=== PATIENT | male | born 1955 | race Caucasian/White ===

== ENCOUNTER → 2017-04-09 | Outpatient (CLI) | payer MEDICAID ==
[~2017-04-09] MED LIST: HYDR25TA6 PO; LISI40TA PO; METH500T7 PO; [UNRECOGNIZED DRUG - OTHER]
[2017-04-09 14:23] LABS: ASPARTATE AMINO TRANSFERASE 18 U/L (15-37); BLOOD UREA NITROGEN 18 mg/dL (7-18)
== END | disposition home or self-care (01) ==
LOC: STAR 12:46
PROVIDERS: ATTEND Otolaryngology
DX: Z01.818 Encounter for other preprocedural examination (principal); R94.31 Abnormal electrocardiogram [ECG] [EKG]; J32.2 Chronic ethmoidal sinusitis; J32.8 Other chronic sinusitis
CPT/HCPCS: 36415; 71020; 80053; 93005

== ENCOUNTER 2017-07-08 07:27 | Day surgery (SDC) | payer MEDICAID ==
[~2017-07-08] VITALS: Ht 177.8 cm; Wt 103.5 kg
[~2017-07-08 07:27] MED LIST changes: +ALBU18HF INH; +BACITRACIN OINT 500U/GM, 15 GM ONE; +EPINEPHRINE TOPICAL SOLN 1 MG/ML, 30ML ONE; +FLUORESCEIN OPHTHALMIC 1 MG STRIP ONE; +FLUT100B INH; +IPRA12.9 INH; +LIDOCAINE/PF 1%-EPI 1:200K, 30 ML ONE; +OXYMETAZOLINE NASAL SPRAY 0.05%, 15ML ONE
[2017-07-08 08:09] VITALS: BP 146/74
[2017-07-08] MEDS ORDERED: LACTATED RINGERS 1,000 ML IV SCH (08:09)
[2017-07-08] MEDS ORDERED: MIDAZOLAM 1 MG/ML, 2ML ONE (08:25)
[2017-07-08] MEDS ORDERED: FENTANYL PF 100 MCG/2ML ONE ×5 (08:25→11:21)
[2017-07-08] MEDS ORDERED: MEPERIDINE/PF 25MG/0.5ML IVPush PRN (08:30)
[2017-07-08] MEDS ORDERED: ONDANSETRON 2MG/ML, 2ML IVPush PRN (08:30)
[2017-07-08] MEDS ORDERED: HYDROmorphone 1 MG/ML, 1ML IV PRN (08:30)
[2017-07-08] MEDS ORDERED: FENTANYL PF 100 MCG/2ML IV PRN (08:30)
[2017-07-08] MEDS ORDERED: ALBUTEROL SULFATE 2.5 MG/3 ML NPPB PRN (08:30)
[2017-07-08] MEDS ORDERED: hydrALAzine 20 MG/ML, 1ML IV PRN (08:30)
[2017-07-08] MEDS ORDERED: OXYcodone 5 MG/5 ML ORAL.SOL UDC PO PRN (08:30)
[2017-07-08] MEDS ORDERED: LABETALOL 5MG/ML, 20ML IV PRN (08:30)
[2017-07-08] MEDS ORDERED: ALBUTEROL/IPRATROPIUM 2.5MG/0.5MG, 3 ML NPPB PRN (08:30)
[2017-07-08] MEDS ORDERED: PROMETHAZINE 25 MG/ML, 1ML IV PRN (08:30)
[2017-07-08] MEDS ORDERED: MIDAZOLAM 1 MG/ML, 2ML IV PRN (08:30)
[2017-07-08] MEDS ORDERED: ACETAMINOPHEN 325 MG TABLET PO PRN (08:30)
[2017-07-08] MEDS ORDERED: CEFAZOLIN 1,000 MG ONE ×2 (08:44)
[2017-07-08] MEDS ORDERED: DEXAMETHASONE 4 MG/ML, 1ML ONE ×2 (08:44)
[2017-07-08] MEDS ORDERED: ONDANSETRON 2MG/ML, 2ML ONE ×2 (08:44)
[2017-07-08] MEDS ORDERED: PROPOFOL 10 MG/ML, 20ML ONE (08:55)
[2017-07-08] MEDS ORDERED: SUCCINYLCHOLINE 20 MG/ML, 10ML ONE (08:55)
[2017-07-08] MEDS ORDERED: ROCURONIUM 10MG/ML,5ML ONE (08:56)
[2017-07-08] MEDS ORDERED: PHENYLEPHRINE 10 MG/ML ONE (08:56)
[2017-07-08] MEDS ORDERED: hydrALAzine 20 MG/ML, 1ML ONE (10:11)
[2017-07-08] MEDS ORDERED: ALBUTEROL SULFATE 200 PUFFS/8.5 GR INH ONE (10:37)
[2017-07-08] MEDS ORDERED: ALBUTEROL/IPRATROPIUM 2.5MG/0.5MG, 3 ML ONE (10:45)
[2017-07-08] MEDS ORDERED: OXYcodone 5 MG/5 ML ORAL.SOL UDC ONE (10:49)
[2017-07-08] MEDS ORDERED: HYDROcodone/APAP 5/325 TABLET PO ONE (15:00)
[2017-07-08] MEDS ORDERED: HYDROcodone/APAP 5/325 TABLET PO PRN (15:30)
[2017-07-08] MEDS ORDERED: AMPICILLIN/SULBACTAM 3 GM in SODIUM CHLORIDE 0.9% 100 ML IV ONE (16:00)
== END 2017-07-08 17:15 | disposition home or self-care (01) ==
LOC: OUT 07:27
PROVIDERS: ATTEND Otolaryngology
DX: J32.9 Chronic sinusitis, unspecified (principal); J33.9 Nasal polyp, unspecified; J32.1 Chronic frontal sinusitis; J44.9 Chronic obstructive pulmonary disease, unspecified; I10 Essential (primary) hypertension; I25.10 Atherosclerotic heart disease of native coronary artery without angina pectoris; F17.210 Nicotine dependence, cigarettes, uncomplicated; Z87.39 Personal history of other diseases of the musculoskeletal system and connective tissue
CPT/HCPCS: 31237; 31255; 31267; 31276; 61782; 87070; 87075; 87205; 88304; 88305; 94640; J0295; J0330; J0360; J0690; J1100; J2250; J2370; J2405; J2704; J3010; J3490; J7120; 87077; 87186; J7620

== ENCOUNTER 2020-08-01 17:23 | Inpatient (IN) | payer MEDICAID ==
[~2020-08-01] VITALS: Ht 177.8 cm; Wt 96.1 kg
[~2020-08-01 17:23] MED LIST changes: +AMOX1TAB64 PO; -BACITRACIN OINT 500U/GM, 15 GM ONE; -EPINEPHRINE TOPICAL SOLN 1 MG/ML, 30ML ONE; -FLUORESCEIN OPHTHALMIC 1 MG STRIP ONE; +GUAI600T31 PO; -LIDOCAINE/PF 1%-EPI 1:200K, 30 ML ONE; +METH4TAB2 PO; +OMEP-110 PO; -OXYMETAZOLINE NASAL SPRAY 0.05%, 15ML ONE
[2020-08-01 18:53] LABS: BASOPHILS % (AUTO) 2 % (0-1); EOSINOPHILS % (AUTO) 4 % (1-7); LYMPHOCYTES % (AUTO) 12 % (22-44); MEAN CORPUSCULAR HEMOGLOBIN 28.9 pg (27.5-34.5); MEAN CORPUSCULAR HGB CONC 32.1 g/dL (33.2-36.2); MEAN PLATELET VOLUME 9.8 fL (7.4-10.4); MONOCYTES % (AUTO) 8 % (2-9); NEUTROPHILS % (AUTO) 73 % (42-75); PLATELET COUNT 195 x10^3/uL (130-400); RED BLOOD COUNT 5.17 x10^6/uL (4.38-5.82)
[2020-08-01 18:54] LABS: MD NO
[2020-08-01 18:55] LABS: ALANINE AMINOTRANSFERASE 16 U/L (12-78); ALBUMIN 3.3 g/dL (3.4-5.0); ANION GAP 4 mmol/L (5-15); CHLORIDE 111 mmol/L (98-107); CREATININE 0.84 mg/dL (0.7-1.3)
[2020-08-01 19:00] LABS: ALKALINE PHOSPHATASE 90 U/L (45-117); BILIRUBIN,TOTAL 0.8 mg/dL (0.2-1.0); TROPONIN I 0.074 ng/mL (0.000-0.045)
--- NOTE | 2020-08-01 19:00 | NUR ---
PT CAME IN CO OF SOB X 3 DAYS Room air poc 87% with great waveform
--- NOTE | 2020-08-01 19:32 | NUR ---
PIV PLACED FOR CTA VSS ON 2L NC
[2020-08-01] MEDS ORDERED: ALBUTEROL HFA 90 MCG/SPRAY INH SCH (20:30)
[2020-08-01] MEDS ORDERED: AZITHROMYCIN 500 MG in SODIUM CHLORIDE 0.9% 250 ML IV ONE (20:30)
[2020-08-01] MEDS ORDERED: IPRATROPIUM HFA 17 MCG/INH INH SCH (20:30)
[2020-08-01] MEDS ORDERED: CEFTRIAXONE PMX 1GM/50ML 50 ML IV ONE (20:30)
[2020-08-01] MEDS ORDERED: GUAIFENESIN/DM 200-20MG, 10ML UDC PO PRN (21:00)
[2020-08-01] MEDS ORDERED: DOCUSATE 100 MG CAPSULE PO PRN (21:00)
--- NOTE | 2020-08-01 21:00 | NUR ---
Lab at bedside-blood cultures x2 obtained
--- NOTE | 2020-08-01 21:10 | NUR ---
to ct scan-barelaly able to tolerate (cant breath laying down- had to use nrb)
[2020-08-01] MEDS ORDERED: OMNIPAQUE 350 MG/ML, 75ML BOTTLE ONE (21:11)
[2020-08-01] MEDS ORDERED: FUROSEMIDE 40 MG/4 ML ONE (21:21)
[2020-08-01] MEDS ORDERED: CEFTRIAXONE PMX 1GM/50ML 50 ML ONE (21:24)
--- NOTE | 2020-08-01 21:28 | NUR ---
[employer] CALLED PROVIDER TO CLARIFY MEDICATION PLAN. TO ADMIN LASIX/IV DOXYCYCLINE/ROCEPHIN. NO NEED FOR ASPIRIN WITH TROPONIN (ASSUMED TO "DEMAND ISCHMIA" PER DR. LUCIA & DR. PRATHER)
[2020-08-01] MEDS ORDERED: FUROSEMIDE 40 MG/4 ML IV ONE (21:30)
[2020-08-01] MEDS ORDERED: HEPARIN 5,000 UNITS/ML, 1ML ONE (21:48)
[2020-08-01] MEDS ORDERED: NICOTINE 7 MG/24 HR PATCH.TD24 ONE (21:48)
--- NOTE | 2020-08-01 22:05 | NUR ---
REPORT TO BRUCE HOLLAND
[2020-08-01] MEDS: HEPARIN 5,000 UNITS/ML, 1ML SQ SCH (22:07)
[2020-08-01] MEDS: DOXYCYCLINE 100 MG in DEXTROSE 5% 250 ML IV SCH (22:07)
[2020-08-01] MEDS: NICOTINE 7 MG/24 HR PATCH.TD24 TD SCH (22:07)
--- NOTE | 2020-08-01 22:56 | NUR ---
REPORT TO DELMER HOLLAND.
[2020-08-01] MEDS ORDERED: ALBUTEROL HFA 90 MCG/SPRAY INH PRN (23:00)
--- NOTE | 2020-08-01 23:02 | NUR ---
Report received from SKYLER Canales. This RN to assume care.
--- NOTE | 2020-08-02 01:34 | NUR ---
Patient transferred to hospital bed. Meal and drinks provided. No other needs at this time.
[2020-08-02] MEDS: HEPARIN 5,000 UNITS/ML, 1ML SQ SCH ×3 (05:00→21:37)
[2020-08-02] MEDS ORDERED: HEPARIN 5,000 UNITS/ML, 1ML ONE ×3 (05:18→20:25)
[2020-08-02] MEDS ORDERED: OMEPRAZOLE 20 MG CAPSULE.DR ONE ×2 (05:18→05:34)
[2020-08-02] MEDS: OMEPRAZOLE 20 MG CAPSULE.DR PO SCH ×2 (05:56→06:00)
--- NOTE | 2020-08-02 06:13 | NUR ---
Admin meds per nov. Provided drinks. Provided cup to collect sputum specimen. No other needs at this time.
[2020-08-02 06:29] LABS: BASOPHILS % (AUTO) 1 % (0-1); EOSINOPHILS % (AUTO) 5 % (1-7); LYMPHOCYTES % (AUTO) 16 % (22-44); MEAN CORPUSCULAR HEMOGLOBIN 28.9 pg (27.5-34.5); MEAN PLATELET VOLUME 10.2 fL (7.4-10.4); MONOCYTES % (AUTO) 11 % (2-9); NEUTROPHILS % (AUTO) 68 % (42-75); PLATELET COUNT 216 x10^3/uL (130-400); RED CELL DISTRIBUTION WIDTH 16.1 % (9.4-14.8)
--- NOTE | 2020-08-02 06:37 | NUR ---
Meal tray ordered.
[2020-08-02 06:40] LABS: ANION GAP 6 mmol/L (5-15); CALCIUM 8.9 mg/dL (8.5-10.1); CHLORIDE 109 mmol/L (98-107)
[2020-08-02 06:45] LABS: MD NO
[2020-08-02 06:47] LABS: CREATININE 0.96 mg/dL (0.7-1.3); TROPONIN I 0.073 ng/mL (0.000-0.045)
--- NOTE | 2020-08-02 06:50 | NUR ---
REPORT RECEIVED FROM SKYLER CASTELLON
--- NOTE | 2020-08-02 07:36 | NUR ---
cardiac rhythm strip printed and placed on chart
--- NOTE | 2020-08-02 09:00 | NUR ---
SITTING UP ON EDGE OF BED EATING BREAKFAST. SPUTUM SAMPLE COLLECTED FOR LAB.
--- NOTE | 2020-08-02 09:39 | NUR ---
ORAL HYGIENE KIT PROVIDED TO PATIENT
[2020-08-02] MEDS ORDERED: FUROSEMIDE 20 MG TABLET ONE (09:42)
--- NOTE | 2020-08-02 10:01 | NUR ---
PT RESTING IN ED BED WATCHING TV. VS OBTAINED. PTS NEEDS MET AT THIS TIME.
[2020-08-02] MEDS: LISINOPRIL 40 MG TABLET PO SCH (10:03)
[2020-08-02] MEDS: HYDROCHLOROTHIAZIDE 25 MG TABLET PO SCH (10:03)
[2020-08-02] MEDS ORDERED: FUROSEMIDE 20 MG/2 ML ONE (10:17)
--- NOTE | 2020-08-02 10:20 | NUR ---
PT SITTING ON THE EDGE OF THE BED, WATCHING TV. PT COUGHING FREQUENTLY WITH BLOOD TINGED SPUTUM SEEN ON TISSUE. PT STATES HIS THROAT IS FEELING RAW. PT VS OBTAINED. NEW IV STARTED. PT'S NEEDS MET AT THIS TIME.
--- NOTE | 2020-08-02 10:43 | NUR ---
NEW IV STARTED
[2020-08-02] MEDS: FUROSEMIDE 40 MG/4 ML IV SCH (10:44)
[2020-08-02] MEDS: DOXYCYCLINE 100 MG in DEXTROSE 5% 250 ML IV SCH ×2 (10:44→21:38)
--- NOTE | 2020-08-02 11:07 | NUR ---
ATTEMPTED TO EDUCATE PT ABOUT INCENTIVE SPIROMETER. PT DECLINED EDUCATION.
[2020-08-02 11:09] LABS: D-DIMER 1.43 ug/mlFEU (0.00-0.52); INTERNATIONAL NORMALIZED RATIO 1.13 (0.93-1.1)
--- NOTE | 2020-08-02 12:20 | NUR ---
SLEEPING WHILE SITTING UP ON EDGE OF BED. PROVIDED LUNCH. EMPTIED 1000 ML URINE
--- NOTE | 2020-08-02 12:42 | NUR ---
cardiac rhythm strip printed and placed on chart
[2020-08-02] MEDS: IPRATROPIUM HFA 17 MCG/INH INH SCH (13:29)
[2020-08-02] MEDS: FLUTICASONE FUROATE 100MCG/INH INH SCH (13:29)
--- NOTE | 2020-08-02 13:30 | NUR ---
Report given to SYKLER Izaguirre
--- NOTE | 2020-08-02 13:32 | NUR ---
REPORT REC'D FROM SKYLER BARRETT
[2020-08-02 17:08] VITALS: BP 130/42
--- NOTE | 2020-08-02 17:50 | NUR ---
CARDIAC RHYTHM STRIP PRINTED AND PLACED ON CHART
[2020-08-02] MEDS ORDERED: CEFTRIAXONE PMX 1GM/50ML 50 ML ONE (20:03)
[2020-08-02] MEDS: CEFTRIAXONE PMX 1GM/50ML 50 ML IV SCH (20:09)
[2020-08-02 20:11] VITALS: BP 129/54
[2020-08-02] MEDS ORDERED: NICOTINE 7 MG/24 HR PATCH.TD24 ONE (20:26)
[2020-08-02] MEDS: NICOTINE 7 MG/24 HR PATCH.TD24 TD SCH (21:38)
[2020-08-03 00:40] VITALS: BP 142/59
[2020-08-03] MEDS ORDERED: ACETAMINOPHEN 325 MG TABLET ONE (00:43)
[2020-08-03] MEDS: ACETAMINOPHEN 325 MG TABLET PO PRN (00:46)
[2020-08-03 04:18] VITALS: BP 130/58
[2020-08-03] MEDS ORDERED: HEPARIN 5,000 UNITS/ML, 1ML ONE ×3 (05:11→20:47)
[2020-08-03] MEDS ORDERED: OMEPRAZOLE 20 MG CAPSULE.DR ONE (05:12)
[2020-08-03] MEDS: HEPARIN 5,000 UNITS/ML, 1ML SQ SCH ×3 (05:29→20:53)
[2020-08-03] MEDS: OMEPRAZOLE 20 MG CAPSULE.DR PO SCH (05:29)
[2020-08-03] MEDS ORDERED: FUROSEMIDE 40 MG/4 ML ONE (08:30)
[2020-08-03] MEDS: HYDROCHLOROTHIAZIDE 25 MG TABLET PO SCH (09:06)
[2020-08-03] MEDS: LISINOPRIL 40 MG TABLET PO SCH (09:06)
[2020-08-03] MEDS: FUROSEMIDE 40 MG/4 ML IV SCH (09:07)
[2020-08-03] MEDS: DOXYCYCLINE 100 MG in DEXTROSE 5% 250 ML IV SCH ×2 (09:08→21:47)
[2020-08-03] MEDS: IPRATROPIUM HFA 17 MCG/INH INH SCH (09:12)
[2020-08-03] MEDS: FLUTICASONE FUROATE 100MCG/INH INH SCH (09:13)
--- NOTE | 2020-08-03 09:34 | NUR ---
REPORT FROM ANABELLE HOLLAND, ASSUME CARE OF PT AT 0900. MEDICATIONS GIVEN PER EMAR. BREAKFAST TRAY PROVIDED. REQUESTS PROVIDED, QUESTIONS ANSWERED. CALL LIGHT WITHIN REACH. PT SITTING UP, EATING BREAKFAST AT THIS TIME.
--- NOTE | 2020-08-03 10:15 | NUR ---
PULSE OX DIPPING TO 80s. PT DENIES SOB, SITTING UP/EATING MEAL TRAY. OXYGEN INCREASED TO 5LITERS VIA NC WITH IMPROVEMENT OF SATS TO 93%. CALL LIGHT WITHIN REACH.
--- NOTE | 2020-08-03 11:15 | NUR ---
ROUNDING NOTE, PT AWAKE/WATCHING TV, NAD. CALL LIGHT WITHIN REACH.
--- NOTE | 2020-08-03 12:30 | NUR ---
MEAL TRAY PROVIDED. URINAL EMPTIED.
--- NOTE | 2020-08-03 13:52 | NUR ---
PT MEDICATED PER EMAR. TRAY REMOVED, URINAL EMPTIED. CALL LIGHT WITHIN REACH. VSS/UPDATED IN COMPUTER.
--- NOTE | 2020-08-03 15:46 | NUR ---
PT ASKING FOR COFFEE AND PUDDING-PROVIDED. CALL LIGHT WITHIN REACH.
--- NOTE | 2020-08-03 17:15 | NUR ---
PT SITTING UP IN CHAIR. MEAL TRAY PROVIDED. QUESTIONS ANSWERED REGARDING POC. CALL LIGHT WITHIN REACH. VS RECORDED, PT REFUSING BP "FOR A FEW MORE HOURS".
--- NOTE | 2020-08-03 17:27 | NUR ---
NEGATIVE COVID RESULT REPORTED TO PT, TUBE TEST TECHNICIAN, THROUGHPUT RN. SPECIAL DROPLET RESP ISOLATION DISCONTINUED.
--- NOTE | 2020-08-03 18:36 | NUR ---
Pt tested negative for covid. PER [place] [facility], PT NEEDS TO BE RE-EVALUATED FOR COVID SYMPTOMS AND POSSIBLE NEED FOR RETESTING OF COVID. CALLED DR. FAY, MADE HER AWARE OF SITUATION. STATED SHE WILL RE-EVAL PT. Addendum: 08/03/[address] PRATHER
--- NOTE | 2020-08-03 19:00 | NUR ---
PER DR. PRATHER PT NEEDS TO BE RETESTED FOR COVID AND NEW LAB PANELS DRAWN. DR. PRATHER PUTTING IN ORDERS AT THIS TIME. PT TO REMAIN ON ISO FOR COVID R/O
--- NOTE | 2020-08-03 19:28 | NUR ---
REPORT TO CHRIS, TRANSFER OF CARE AT THIS TIME.
[2020-08-03 19:58] LABS: C-REACTIVE PROTEIN, QUANT 0.91 mg/dL (0.02-0.49)
[2020-08-03 20:08] VITALS: BP 133/53
[2020-08-03] MEDS ORDERED: CEFTRIAXONE PMX 1GM/50ML 50 ML ONE (20:47)
[2020-08-03] MEDS ORDERED: NICOTINE 7 MG/24 HR PATCH.TD24 ONE (20:47)
[2020-08-03] MEDS: CEFTRIAXONE PMX 1GM/50ML 50 ML IV SCH (20:53)
[2020-08-03] MEDS: NICOTINE 7 MG/24 HR PATCH.TD24 TD SCH (20:53)
[2020-08-04 00:29] VITALS: BP 133/56
[2020-08-04 04:33] VITALS: BP 142/66
[2020-08-04] MEDS ORDERED: HEPARIN 5,000 UNITS/ML, 1ML ONE (05:39)
[2020-08-04] MEDS ORDERED: OMEPRAZOLE 20 MG CAPSULE.DR ONE (05:40)
[2020-08-04] MEDS: OMEPRAZOLE 20 MG CAPSULE.DR PO SCH (05:45)
[2020-08-04] MEDS: HEPARIN 5,000 UNITS/ML, 1ML SQ SCH ×3 (05:45→21:39)
[2020-08-04 08:00] VITALS: BP 146/62
[2020-08-04] MEDS: LISINOPRIL 40 MG TABLET PO SCH (09:00)
[2020-08-04] MEDS: FUROSEMIDE 40 MG/4 ML IV SCH (09:00)
[2020-08-04] MEDS: FLUTICASONE FUROATE 100MCG/INH INH SCH (10:23)
[2020-08-04] MEDS: IPRATROPIUM HFA 17 MCG/INH INH SCH (10:23)
[2020-08-04] MEDS ORDERED: FUROSEMIDE 20 MG/2 ML ONE (10:45)
[2020-08-04 12:00] VITALS: BP 148/61
[2020-08-04] MEDS: DOXYCYCLINE 100 MG in DEXTROSE 5% 250 ML IV SCH ×2 (12:15→23:01)
[2020-08-04] MEDS ORDERED: LISINOPRIL 20 MG TABLET ONE (12:59)
[2020-08-04] MEDS: HYDROCHLOROTHIAZIDE 25 MG TABLET PO SCH (13:14)
[2020-08-04 14:00] VITALS: BP 127/53
[2020-08-04 16:23] LABS: BASOPHILS % (AUTO) 1 % (0-1); EOSINOPHILS % (AUTO) 7 % (1-7); LYMPHOCYTES % (AUTO) 14 % (22-44); MEAN CORPUSCULAR HEMOGLOBIN 28.8 pg (27.5-34.5); MEAN CORPUSCULAR HGB CONC 32.3 g/dL (33.2-36.2); MEAN PLATELET VOLUME 9.9 fL (7.4-10.4); MONOCYTES % (AUTO) 13 % (2-9); NEUTROPHILS % (AUTO) 65 % (42-75); PLATELET COUNT 205 x10^3/uL (130-400); RED BLOOD COUNT 5.19 x10^6/uL (4.38-5.82); RED CELL DISTRIBUTION WIDTH 15.9 % (9.4-14.8)
[2020-08-04 16:32] LABS: ALANINE AMINOTRANSFERASE 18 U/L (12-78); ALBUMIN 3.2 g/dL (3.4-5.0); ANION GAP 2 mmol/L (5-15); CALCIUM 8.5 mg/dL (8.5-10.1); CHLORIDE 99 mmol/L (98-107); MD NO
[2020-08-04 16:37] LABS: ALKALINE PHOSPHATASE 81 U/L (45-117); BILIRUBIN,TOTAL 0.6 mg/dL (0.2-1.0); CREATININE 0.93 mg/dL (0.7-1.3); TOTAL PROTEIN 7.1 g/dL (6.4-8.2)
[2020-08-04] MEDS: NICOTINE 7 MG/24 HR PATCH.TD24 TD SCH (21:39)
[2020-08-04 22:01] VITALS: BP 142/68
[2020-08-04] MEDS: CEFTRIAXONE PMX 1GM/50ML 50 ML IV SCH (22:06)
[2020-08-05 02:40] VITALS: BP 130/70
[2020-08-05] MEDS: HEPARIN 5,000 UNITS/ML, 1ML SQ SCH ×3 (05:42→21:17)
[2020-08-05] MEDS: OMEPRAZOLE 20 MG CAPSULE.DR PO SCH ×2 (05:42→09:00)
[2020-08-05] MEDS: FLUTICASONE FUROATE 100MCG/INH INH SCH ×2 (09:00→12:50)
[2020-08-05] MEDS: IPRATROPIUM HFA 17 MCG/INH INH SCH ×2 (09:00→12:50)
[2020-08-05 09:04] VITALS: BP 132/71
[2020-08-05] MEDS: HYDROCHLOROTHIAZIDE 25 MG TABLET PO SCH (09:05)
[2020-08-05] MEDS: FUROSEMIDE 40 MG/4 ML IV SCH (09:05)
[2020-08-05] MEDS: LISINOPRIL 40 MG TABLET PO SCH (09:05)
[2020-08-05] MEDS: DOXYCYCLINE 100 MG in DEXTROSE 5% 250 ML IV SCH ×2 (10:15→21:17)
[2020-08-05 13:42] VITALS: BP 121/68
[2020-08-05 19:01] VITALS: BP 130/74
[2020-08-05] MEDS: CEFTRIAXONE PMX 1GM/50ML 50 ML IV SCH (21:16)
[2020-08-05] MEDS: NICOTINE 7 MG/24 HR PATCH.TD24 TD SCH (21:17)
[2020-08-06 00:23] VITALS: BP 126/71
[2020-08-06] MEDS: OMEPRAZOLE 20 MG CAPSULE.DR PO SCH (05:26)
[2020-08-06] MEDS: HEPARIN 5,000 UNITS/ML, 1ML SQ SCH ×2 (05:26→14:00)
[2020-08-06] MEDS ORDERED: DOXYCYCLINE 100MG TABLET PO SCH (09:00)
[2020-08-06 10:15] VITALS: BP 141/75
[2020-08-06] MEDS: FUROSEMIDE 40 MG/4 ML IV SCH (10:16)
[2020-08-06] MEDS: LISINOPRIL 40 MG TABLET PO SCH (10:17)
[2020-08-06] MEDS: HYDROCHLOROTHIAZIDE 25 MG TABLET PO SCH (10:17)
[2020-08-06] MEDS: ACETAMINOPHEN 325 MG TABLET PO PRN (10:18)
[2020-08-06] MEDS ORDERED: CARV3.12 PO (12:31)
[2020-08-06] MEDS ORDERED: FURO-93 PO (12:31)
[2020-08-06 13:33] VITALS: BP 126/70
[2020-08-06] MEDS ORDERED: FLU VACC QS2020-21(6MOS UP)/PF 60MCG/0.5 ML SYR IM-VACC ONE (16:00)
== END 2020-08-06 17:51 | disposition home or self-care (01) | DRG 280 ==
LOC: ED 20:10 → EDIP 20:16 → ED 21:25 → ICU 08-04 18:33
PROVIDERS: ADMIT Family Medicine; ATTEND Hospitalist
DX: I11.0 Hypertensive heart disease with heart failure (principal); I21.A1 Myocardial infarction type 2; I50.21 Acute systolic (congestive) heart failure; J18.9 Pneumonia, unspecified organism; J96.01 Acute respiratory failure with hypoxia; J44.0 Chronic obstructive pulmonary disease with (acute) lower respiratory infection; Z60.2 Problems related to living alone; F17.210 Nicotine dependence, cigarettes, uncomplicated; I35.8 Other nonrheumatic aortic valve disorders; I71.2 Thoracic aortic aneurysm, without rupture; Z20.828 Contact with and (suspected) exposure to other viral communicable diseases; Z87.01 Personal history of pneumonia (recurrent); Z23 Encounter for immunization; Z91.14 Patient's other noncompliance with medication regimen; Z91.19 Patient's noncompliance with other medical treatment and regimen; Z71.6 Tobacco abuse counseling; Z79.899 Other long term (current) drug therapy
CPT/HCPCS: 36415; 71045; 71275; 80048; 80053; 82728; 83605; 83615; 83880; 84145; 84443; 84484; 85025; 85379; 85610; 86140; 87040; 87070; 87081; 87205; 87635; 90686; 93005; 93306; 94640; 96374; 96375; 99285; G0378; J0696; J1644; J1940; J7060; Q9967